=== PATIENT | male | born 1970 | race Asian ===

== ENCOUNTER 2017-05-14 07:59 | Emergency (ER) | payer OTHER ==
[~2017-05-14] VITALS: Ht 170.2 cm; Wt 77.0 kg
[~2017-05-14 07:59] MED LIST: ALBU8HFA IH; ASPI-825 PO; ATOR20TA86 PO; SERT50TA12 PO; WARF5 PO
[2017-05-14] MEDS ORDERED: ALBUTEROL SULFATE 5 MG/ML 20 ML NEB SOLN [BULK] NEB ONE (08:30)
[2017-05-14] MEDS ORDERED: IBUPROFEN 600 MG TABLET PO ONE (08:30)
[2017-05-14] MEDS ORDERED: IPRATROPIUM BROMIDE 0.5 MG/2.5 ML NEB SOLUTION NEB ONE (08:30)
[2017-05-14] MEDS ORDERED: PredniSONE 20 MG TABLET PO ONE (08:30)
[2017-05-14 09:36] VITALS: BP 130/78
== END 2017-05-14 09:47 | disposition home or self-care (01) ==
LOC: EMS 08:00
DX: J45.909 Unspecified asthma, uncomplicated (principal); I25.10 Atherosclerotic heart disease of native coronary artery without angina pectoris
CPT/HCPCS: 71010; 93005; 94644; 99285; J7512; J7611

== ENCOUNTER 2017-05-17 09:12 | Emergency (ER) | payer OTHER ==
[~2017-05-17] VITALS: Ht 170.2 cm; Wt 77.3 kg
[2017-05-17] MEDS ORDERED: IPRATROPIUM BROMIDE 0.5 MG/2.5 ML NEB SOLUTION NEB ONE ×3 (09:45→13:15)
[2017-05-17] MEDS ORDERED: ALBUTEROL SULFATE 5 MG/ML 20 ML NEB SOLN [BULK] NEB ONE ×2 (09:45→13:00)
[2017-05-17] MEDS ORDERED: DEXAMETHASONE 4 MG TABLET PO ONE (10:15)
[2017-05-17] MEDS ORDERED: ATOR40TA28 PO (10:37)
[2017-05-17] MEDS ORDERED: WARF7.5 PO (10:37)
[2017-05-17] MEDS ORDERED: MethylPREDNISolone SOD SUCC 125 MG/2 ML VIAL IVP ONE (10:45)
[2017-05-17 11:33] LABS: BASOPHILS % (AUTO) 0.3 % (0.0-2.0); EOSINOPHILS % (AUTO) 0.7 % (1.0-6.0); HEMATOCRIT 43.4 % (41-53); HEMOGLOBIN 14.8 g/dL (13.5-17.5); LYMPHOCYTES # (AUTO) 3.7 K/uL (1.0-4.8); LYMPHOCYTES % (AUTO) 34.6 % (22.0-44.0); MEAN CORPUSCULAR HEMOGLOBIN 29.7 pg (26.0-34.0); MEAN CORPUSCULAR VOLUME 87 fL (80-100); MONOCYTES # (AUTO) 0.8 K/uL (0.1-1.0); MONOCYTES % (AUTO) 7.7 % (2.0-9.0); NEUTROPHILS # (AUTO) 6.1 K/uL (1.8-7.7); NEUTROPHILS % (AUTO) 56.7 % (40.0-70.0); PLATELET COUNT (AUTO) 196 K/uL (150-450); RED BLOOD CELL COUNT(AUTO) 4.97 MIL/uL (4.50-5.90); RED CELL DISTRIBUTION WIDTH 13.7 % (11.5-14.5); WHITE BLOOD COUNT (AUTO) 10.7 K/uL (4.5-11.0)
[2017-05-17 11:37] LABS: ANION GAP 12 mmol/L (8-16); CALCIUM, TOTAL 9.5 mg/dL (8.8-10.5); CARBON DIOXIDE 28 mmol/L (22-29); CHLORIDE 103 mmol/L (98-107); GLOMERULAR FILTR. RATE CALC > 60 mL/min (>60); POTASSIUM 3.4 mmol/L (3.5-5.1); SODIUM SERUM 143 mmol/L (136-145); UREA NITROGEN, BLOOD 18 mg/dL (7-18)
[2017-05-17 11:44] LABS: ALANINE AMINOTRANSFERASE 45 U/L (12-78); ASPARTATE AMINOTRANSFERASE 31 U/L (15-37); BILIRUBIN,TOTAL 0.7 mg/dL (0.1-1.0); TOTAL PROTEIN, SERUM 8.8 g/dL (6.4-8.2)
[2017-05-17] MEDS ORDERED: ALBUTEROL SULFATE 2.5 MG/0.5 ML NEB SOLUTION NEB ONE (13:15)
[2017-05-17] MEDS ORDERED: ALBUTEROL SULFATE HFA 90 MCG/PUFF 8 GM INHALER IH ONE (13:30)
[2017-05-17 13:58] VITALS: BP 122/76
== END 2017-05-17 14:02 | disposition home or self-care (01) ==
LOC: EMS 09:12
DX: J45.909 Unspecified asthma, uncomplicated (principal); I25.10 Atherosclerotic heart disease of native coronary artery without angina pectoris
CPT/HCPCS: 36415; 71020; 80053; 85025; 94644; 94645; 96374; 99285; J2930; J7611; 94640; J3535; J8540

== ENCOUNTER 2017-05-18 08:05 | Emergency (ER) | payer OTHER ==
[~2017-05-18] VITALS: Ht 170.2 cm; Wt 77.3 kg
[~2017-05-18 08:05] MED LIST changes: -ATOR20TA86 PO; +ATOR40TA28 PO; -WARF5 PO; +WARF7.5 PO
[2017-05-18] MEDS ORDERED: IPRATROPIUM BROMIDE 0.5 MG/2.5 ML NEB SOLUTION NEB ONE ×4 (08:20→11:30)
[2017-05-18] MEDS ORDERED: ALBUTEROL SULFATE 5 MG/ML 20 ML NEB SOLN [BULK] NEB ONE ×4 (08:20→11:30)
[2017-05-18] MEDS ORDERED: 0.9% SODIUM CHLORIDE 5 ML NEB SOLUTION NEB ONE ×2 (08:21→09:29)
[2017-05-18] MEDS ORDERED: MethylPREDNISolone SOD SUCC 125 MG/2 ML VIAL IM ONE (08:45)
[2017-05-18] MEDS ORDERED: AZITHROMYCIN 250 MG TABLET PO ONE (09:30)
[2017-05-18] MEDS ORDERED: 0.9% SODIUM CHLORIDE 15 ML NEB SOLUTION NEB ONE (11:38)
[2017-05-18 12:12] VITALS: BP 113/59
== END 2017-05-18 12:58 | disposition home or self-care (01) ==
LOC: EMS 08:06
DX: J45.901 Unspecified asthma with (acute) exacerbation (principal); R06.03 Acute respiratory distress; J98.01 Acute bronchospasm; I25.10 Atherosclerotic heart disease of native coronary artery without angina pectoris
CPT/HCPCS: 94644; 94645; 96372; 99285; J2930; J7611

== ENCOUNTER 2017-05-20 15:28 | Emergency (ER) | payer OTHER ==
[~2017-05-20] VITALS: Ht 170.2 cm; Wt 77.3 kg
[2017-05-20] MEDS ORDERED: DOXY25SU3 PO (15:36)
[2017-05-20] MEDS ORDERED: ALBUTEROL SULFATE 5 MG/ML 20 ML NEB SOLN [BULK] NEB ONE ×2 (17:30→18:15)
[2017-05-20] MEDS ORDERED: IPRATROPIUM BROMIDE 0.5 MG/2.5 ML NEB SOLUTION NEB ONE ×2 (17:30→18:15)
[2017-05-20] MEDS ORDERED: ACETAMINOPHEN 500 MG TABLET PO ONE ×2 (18:15→18:45)
[2017-05-20] MEDS ORDERED: 0.9% SODIUM CHLORIDE 5 ML NEB SOLUTION NEB ONE (18:44)
[2017-05-20 18:57] VITALS: BP 130/84
== END 2017-05-20 20:50 | disposition home or self-care (01) ==
LOC: EMS 15:30
DX: J45.901 Unspecified asthma with (acute) exacerbation (principal); I25.10 Atherosclerotic heart disease of native coronary artery without angina pectoris; I51.9 Heart disease, unspecified; G43.909 Migraine, unspecified, not intractable, without status migrainosus; I25.2 Old myocardial infarction; Z79.82 Long term (current) use of aspirin
CPT/HCPCS: 94644; 94645; 99285; J7611

== ENCOUNTER 2017-05-30 17:25 | Inpatient (IN) | payer OTHER ==
[~2017-05-30] VITALS: Ht 165.1 cm; Wt 77.4 kg
[~2017-05-30 17:25] MED LIST changes: +DOXY25SU3 PO
[2017-05-30 17:50] LABS: BASOPHILS % (AUTO) 0.6 % (0.0-2.0); EOSINOPHILS % (AUTO) 1.8 % (1.0-6.0); HEMATOCRIT 37.3 % (41-53); HEMOGLOBIN 12.9 g/dL (13.5-17.5); LYMPHOCYTES # (AUTO) 2.8 K/uL (1.0-4.8); LYMPHOCYTES % (AUTO) 40.6 % (22.0-44.0); MEAN CORPUSCULAR HEMOGLOBIN 29.6 pg (26.0-34.0); MEAN CORPUSCULAR HGB CONC 34.5 G/dL (31.0-37.0); MEAN CORPUSCULAR VOLUME 86 fL (80-100); MONOCYTES # (AUTO) 0.5 K/uL (0.1-1.0); NEUTROPHILS # (AUTO) 3.3 K/uL (1.8-7.7); PLATELET COUNT (AUTO) 268 K/uL (150-450); RED BLOOD CELL COUNT(AUTO) 4.35 MIL/uL (4.50-5.90); RED CELL DISTRIBUTION WIDTH 13.6 % (11.5-14.5); WHITE BLOOD COUNT (AUTO) 6.8 K/uL (4.5-11.0)
[2017-05-30 18:03] LABS: ANION GAP 9 mmol/L (8-16); CALCIUM, TOTAL 8.6 mg/dL (8.8-10.5); CARBON DIOXIDE 29 mmol/L (22-29); CHLORIDE 103 mmol/L (98-107); CREATININE 0.98 mg/dL (0.60-1.30); GLOMERULAR FILTR. RATE CALC > 60 mL/min (>60); SODIUM SERUM 141 mmol/L (136-145); UREA NITROGEN, BLOOD 20 mg/dL (7-18)
[2017-05-30 18:15] LABS: INR 2.8 (0.9-1.1); PROTHROMBIN TIME 29.8 SEC (9.4-11.6)
[2017-05-30 18:17] LABS: B-TYPE NATRIURETIC PEPTIDE 45 pg/mL (0-100)
[2017-05-30 18:29] LABS: ALANINE AMINOTRANSFERASE 66 U/L (12-78); ALBUMIN 3.6 g/dL (3.4-5.0); ASPARTATE AMINOTRANSFERASE 27 U/L (15-37); BILIRUBIN,TOTAL 0.5 mg/dL (0.1-1.0); CREATINE KINASE MB 0.8 ng/mL (0-5); CREATINE KINASE, TOTAL 102 U/L (39-308); TOTAL PROTEIN, SERUM 7.4 g/dL (6.4-8.2)
[2017-05-30] MEDS ORDERED: DOXY100C40 PO (20:08)
[2017-05-30] MEDS ORDERED: DONNATAL/LIDOCAINE/MAALOX 55 ML BOTTLE PO ONE (20:15)
[2017-05-30] MEDS ORDERED: PANTOPRAZOLE SODIUM 80 MG in SODIUM CHLORIDE 0.9% 50 ML IV ONE (20:15)
[2017-05-30] MEDS ORDERED: PANTOPRAZOLE SODIUM 80 MG in SODIUM CHLORIDE 0.9% 100 ML IV SCH (22:00)
[2017-05-30] MEDS ORDERED: ALBUTEROL SULFATE 2.5 MG/0.5 ML NEB SOLUTION NEB PRN (22:15)
[2017-05-30] MEDS ORDERED: ACETAMINOPHEN 325 MG TABLET PO PRN (22:15)
[2017-05-30] MEDS ORDERED: WARFARIN SODIUM 5 MG TABLET PO SCH (22:15)
[2017-05-30] MEDS ORDERED: MAGNESIUM HYDROXIDE SUSPENSION 30 ML UDCUP PO PRN (22:15)
[2017-05-30] MEDS ORDERED: MORPHINE SULFATE 2 MG/ML SYRINGE IVP PRN (22:15)
[2017-05-30] MEDS ORDERED: OxyCODONE HCL/ACETAMINOPHEN 5-325 MG TABLET PO PRN (22:15)
[2017-05-31] VITALS (8 sets, daily range): BP systolic 104–121; BP diastolic 62–82
[2017-05-31] MEDS ORDERED: ZOLP10TA7 PO (00:35)
[2017-05-31] MEDS ORDERED: ZOLPIDEM TARTRATE 10 MG TABLET PO ONE (00:45)
[2017-05-31 06:11] LABS: INR 2.9 (0.9-1.1); PROTHROMBIN TIME 30.7 SEC (9.4-11.6)
[2017-05-31 06:14] LABS: BASOPHILS % (AUTO) 0.5 % (0.0-2.0); EOSINOPHILS % (AUTO) 2.4 % (1.0-6.0); HEMATOCRIT 36.9 % (41-53); HEMOGLOBIN 12.7 g/dL (13.5-17.5); LYMPHOCYTES # (AUTO) 2.4 K/uL (1.0-4.8); LYMPHOCYTES % (AUTO) 41.1 % (22.0-44.0); MEAN CORPUSCULAR HEMOGLOBIN 29.8 pg (26.0-34.0); MEAN CORPUSCULAR HGB CONC 34.5 G/dL (31.0-37.0); MEAN CORPUSCULAR VOLUME 87 fL (80-100); MONOCYTES # (AUTO) 0.5 K/uL (0.1-1.0); MONOCYTES % (AUTO) 7.8 % (2.0-9.0); NEUTROPHILS # (AUTO) 2.8 K/uL (1.8-7.7); NEUTROPHILS % (AUTO) 48.2 % (40.0-70.0); PLATELET COUNT (AUTO) 229 K/uL (150-450); RED BLOOD CELL COUNT(AUTO) 4.26 MIL/uL (4.50-5.90); RED CELL DISTRIBUTION WIDTH 13.5 % (11.5-14.5); WHITE BLOOD COUNT (AUTO) 5.8 K/uL (4.5-11.0)
[2017-05-31] MEDS: DOCUSATE SODIUM 100 MG CAPSULE PO SCH ×2 (08:49→20:45)
[2017-05-31] MEDS: ATORVASTATIN CALCIUM 40 MG TABLET PO SCH (08:49)
[2017-05-31] MEDS: PANTOPRAZOLE SODIUM 40 MG DR TABLET PO SCH ×2 (08:49→20:27)
[2017-05-31] MEDS: PANTOPRAZOLE SODIUM 80 MG in SODIUM CHLORIDE 0.9% 100 ML IV SCH (15:28)
[2017-05-31] MEDS ORDERED: FAMOTIDINE 20 MG TABLET PO ONE (17:00)
[2017-05-31] MEDS: LORazepam 1 MG TABLET PO SCH (17:14)
[2017-05-31] MEDS ORDERED: MECLIZINE HCL 25 MG TABLET PO PRN (20:45)
[2017-05-31] MEDS ORDERED: WARFARIN SODIUM 5 MG TABLET PO SCH (21:00)
[2017-05-31] MEDS ORDERED: ZOLPIDEM TARTRATE 10 MG TABLET PO PRN (21:00)
[2017-06-01 04:22] VITALS: BP 95/56
[2017-06-01 06:35] LABS: INR 2.1 (0.9-1.1); PROTHROMBIN TIME 22.1 SEC (9.4-11.6)
[2017-06-01 07:45] VITALS: BP 128/63
[2017-06-01] MEDS: ATORVASTATIN CALCIUM 40 MG TABLET PO SCH (08:56)
[2017-06-01] MEDS: DOCUSATE SODIUM 100 MG CAPSULE PO SCH (08:56)
[2017-06-01] MEDS: LORazepam 1 MG TABLET PO SCH (08:56)
[2017-06-01] MEDS: PANTOPRAZOLE SODIUM 80 MG in SODIUM CHLORIDE 0.9% 100 ML IV SCH ×3 (10:40)
[2017-06-01 10:56] VITALS: BP 104/63
[2017-06-01 15:19] VITALS: BP 113/69
[2017-06-01] MEDS ORDERED: PANT40TA25 PO (18:52)
== END 2017-06-01 19:05 | disposition home or self-care (01) | DRG 243 ==
LOC: EMS 17:28 → 5N 23:15
PROVIDERS: ADMIT Internal Medicine; ATTEND Internal Medicine
DX: K21.9 Gastro-esophageal reflux disease without esophagitis (principal); E78.5 Hyperlipidemia, unspecified; R10.13 Epigastric pain; R07.9 Chest pain, unspecified; I25.2 Old myocardial infarction; F41.9 Anxiety disorder, unspecified; I25.10 Atherosclerotic heart disease of native coronary artery without angina pectoris; J45.909 Unspecified asthma, uncomplicated; G43.909 Migraine, unspecified, not intractable, without status migrainosus; Z82.49 Family history of ischemic heart disease and other diseases of the circulatory system; Z79.01 Long term (current) use of anticoagulants; Z79.82 Long term (current) use of aspirin; Z79.899 Other long term (current) drug therapy; Z79.51 Long term (current) use of inhaled steroids
CPT/HCPCS: 74022; 82271; 93005; 96365; 96366; 99285; C9113; J7050

== ENCOUNTER 2017-06-06 06:59 | Emergency (ER) | payer OTHER ==
[~2017-06-06] VITALS: Ht 170.2 cm; Wt 77.3 kg
[~2017-06-06 06:59] MED LIST changes: -DOXY25SU3 PO; +PANT40TA25 PO; +ZOLP10TA7 PO
[2017-06-06] MEDS ORDERED: DEXAMETHASONE SOD PHOS 4 MG/ML 5 ML VIAL IM ONE (08:00)
[2017-06-06] MEDS ORDERED: ALBUTEROL SULFATE 2.5 MG/0.5 ML NEB SOLUTION NEB ONE ×2 (08:00→08:45)
[2017-06-06 09:00] VITALS: BP 134/68
== END 2017-06-06 09:09 | disposition home or self-care (01) ==
LOC: EMS 07:00
DX: J45.909 Unspecified asthma, uncomplicated (principal); I25.10 Atherosclerotic heart disease of native coronary artery without angina pectoris; I51.9 Heart disease, unspecified; G43.909 Migraine, unspecified, not intractable, without status migrainosus; I25.2 Old myocardial infarction
CPT/HCPCS: 94640; 96372; 99284; J1100; J7613

== ENCOUNTER 2017-06-08 10:20 | Emergency (ER) | payer OTHER ==
[~2017-06-08] VITALS: Ht 170.2 cm; Wt 77.3 kg
[2017-06-08 10:48] VITALS: BP 149/77
[2017-06-08] MEDS ORDERED: IPRATROPIUM BROMIDE 0.5 MG/2.5 ML NEB SOLUTION NEB ONE (11:00)
[2017-06-08] MEDS ORDERED: PredniSONE 20 MG TABLET PO ONE (11:00)
[2017-06-08] MEDS ORDERED: ALBUTEROL SULFATE 2.5 MG/0.5 ML NEB SOLUTION NEB ONE (11:00)
[2017-06-08] MEDS ORDERED: PRED20 PO (20:52)
== END 2017-06-08 11:54 | disposition home or self-care (01) ==
LOC: EMS 10:21
DX: J45.909 Unspecified asthma, uncomplicated (principal); R03.0 Elevated blood-pressure reading, without diagnosis of hypertension; I25.10 Atherosclerotic heart disease of native coronary artery without angina pectoris; I25.2 Old myocardial infarction
CPT/HCPCS: 94644; 99285; J7512; J7613; 94640

== ENCOUNTER 2017-06-08 20:39 | Emergency (ER) | payer OTHER ==
[~2017-06-08] VITALS: Ht 170.2 cm; Wt 77.0 kg
[2017-06-08] MEDS ORDERED: PRED20 PO (20:52)
[2017-06-08] MEDS ORDERED: MethylPREDNISolone SOD SUCC 125 MG/2 ML VIAL IVP ONE (21:30)
[2017-06-08] MEDS ORDERED: ALBUTEROL SULFATE 5 MG/ML 20 ML NEB SOLN [BULK] NEB ONE (21:30)
[2017-06-08] MEDS ORDERED: IPRATROPIUM BROMIDE 0.5 MG/2.5 ML NEB SOLUTION NEB ONE (21:30)
[2017-06-08] MEDS ORDERED: 0.9% SODIUM CHLORIDE 15 ML NEB SOLUTION NEB ONE (21:32)
[2017-06-08 21:35] LABS: BASOPHILS % (AUTO) 0.2 % (0.0-2.0); EOSINOPHILS % (AUTO) 0 % (1.0-6.0); HEMATOCRIT 36.5 % (41-53); HEMOGLOBIN 12.6 g/dL (13.5-17.5); LYMPHOCYTES % (AUTO) 20.5 % (22.0-44.0); MEAN CORPUSCULAR HEMOGLOBIN 29.6 pg (26.0-34.0); MEAN CORPUSCULAR HGB CONC 34.4 G/dL (31.0-37.0); MEAN CORPUSCULAR VOLUME 86 fL (80-100); MONOCYTES # (AUTO) 0.1 K/uL (0.1-1.0); MONOCYTES % (AUTO) 3.2 % (2.0-9.0); NEUTROPHILS # (AUTO) 3.5 K/uL (1.8-7.7); NEUTROPHILS % (AUTO) 76.1 % (40.0-70.0); PLATELET COUNT (AUTO) 177 K/uL (150-450); RED BLOOD CELL COUNT(AUTO) 4.25 MIL/uL (4.50-5.90); RED CELL DISTRIBUTION WIDTH 13.9 % (11.5-14.5); WHITE BLOOD COUNT (AUTO) 4.7 K/uL (4.5-11.0)
[2017-06-08 21:54] LABS: ANION GAP 12 mmol/L (8-16); CALCIUM, TOTAL 8.7 mg/dL (8.8-10.5); CARBON DIOXIDE 24 mmol/L (22-29); CHLORIDE 100 mmol/L (98-107); CREATININE 1.17 mg/dL (0.60-1.30); GLOMERULAR FILTR. RATE CALC > 60 mL/min (>60); SODIUM SERUM 136 mmol/L (136-145); UREA NITROGEN, BLOOD 15 mg/dL (7-18)
[2017-06-08 21:59] LABS: ALANINE AMINOTRANSFERASE 49 U/L (12-78); ALBUMIN 3.5 g/dL (3.4-5.0); ASPARTATE AMINOTRANSFERASE 32 U/L (15-37); BILIRUBIN,TOTAL 0.3 mg/dL (0.1-1.0); TOTAL PROTEIN, SERUM 7.8 g/dL (6.4-8.2)
[2017-06-08 22:30] VITALS: BP 122/76
== END 2017-06-08 23:15 | disposition home or self-care (01) ==
LOC: EMS 20:40
DX: J45.901 Unspecified asthma with (acute) exacerbation (principal); J06.9 Acute upper respiratory infection, unspecified; R73.9 Hyperglycemia, unspecified; I25.10 Atherosclerotic heart disease of native coronary artery without angina pectoris; I25.2 Old myocardial infarction
CPT/HCPCS: 36415; 71010; 80053; 84484; 85025; 94640; 96374; 99285; J2930; J7611

== ENCOUNTER 2017-06-10 16:50 | Emergency (ER) | payer OTHER ==
[~2017-06-10] VITALS: Ht 170.2 cm; Wt 77.3 kg
[~2017-06-10 16:50] MED LIST changes: +PRED20 PO
[2017-06-10] MEDS ORDERED: 0.9% SODIUM CHLORIDE 5 ML NEB SOLUTION NEB ONE ×2 (19:39→21:40)
[2017-06-10] MEDS ORDERED: IPRATROPIUM BROMIDE 0.5 MG/2.5 ML NEB SOLUTION NEB ONE ×2 (19:45→21:15)
[2017-06-10] MEDS ORDERED: MethylPREDNISolone SOD SUCC 125 MG/2 ML VIAL IVP ONE (19:45)
[2017-06-10] MEDS ORDERED: ALBUTEROL SULFATE 5 MG/ML 20 ML NEB SOLN [BULK] NEB ONE ×2 (19:45→21:15)
[2017-06-10 20:04] LABS: BASOPHILS % (AUTO) 0.5 % (0.0-2.0); EOSINOPHILS % (AUTO) 0 % (1.0-6.0); HEMATOCRIT 37.4 % (41-53); HEMOGLOBIN 12.7 g/dL (13.5-17.5); LYMPHOCYTES # (AUTO) 1.7 K/uL (1.0-4.8); MEAN CORPUSCULAR HEMOGLOBIN 29.5 pg (26.0-34.0); MEAN CORPUSCULAR VOLUME 87 fL (80-100); MONOCYTES # (AUTO) 0.5 K/uL (0.1-1.0); MONOCYTES % (AUTO) 6.5 % (2.0-9.0); NEUTROPHILS # (AUTO) 5.5 K/uL (1.8-7.7); PLATELET COUNT (AUTO) 229 K/uL (150-450); RED BLOOD CELL COUNT(AUTO) 4.31 MIL/uL (4.50-5.90); RED CELL DISTRIBUTION WIDTH 13.9 % (11.5-14.5); WHITE BLOOD COUNT (AUTO) 7.7 K/uL (4.5-11.0)
[2017-06-10 20:13] LABS: ANION GAP 6 mmol/L (8-16); CALCIUM, TOTAL 8.6 mg/dL (8.8-10.5); CARBON DIOXIDE 30 mmol/L (22-29); CHLORIDE 103 mmol/L (98-107); CREATININE 1.01 mg/dL (0.60-1.30); GLOMERULAR FILTR. RATE CALC > 60 mL/min (>60); POTASSIUM 4.1 mmol/L (3.5-5.1); SODIUM SERUM 139 mmol/L (136-145); UREA NITROGEN, BLOOD 18 mg/dL (7-18)
[2017-06-10 20:16] LABS: PROTHROMBIN TIME 45.6 SEC (9.4-11.6)
[2017-06-10 20:19] LABS: ALANINE AMINOTRANSFERASE 49 U/L (12-78); ALBUMIN 3.5 g/dL (3.4-5.0); ASPARTATE AMINOTRANSFERASE 24 U/L (15-37); BILIRUBIN,TOTAL 0.3 mg/dL (0.1-1.0); TOTAL PROTEIN, SERUM 7.7 g/dL (6.4-8.2)
[2017-06-10 20:27] LABS: INR 4.3 (0.9-1.1)
[2017-06-10 20:36] LABS: B-TYPE NATRIURETIC PEPTIDE 53 pg/mL (0-100)
[2017-06-10 23:07] VITALS: BP 132/75
== END 2017-06-10 22:55 | disposition left against medical advice (07) ==
LOC: EMS 16:55
DX: J45.901 Unspecified asthma with (acute) exacerbation (principal); I25.10 Atherosclerotic heart disease of native coronary artery without angina pectoris; G43.909 Migraine, unspecified, not intractable, without status migrainosus; I25.2 Old myocardial infarction; Z79.899 Other long term (current) drug therapy
CPT/HCPCS: 36415; 71010; 80053; 83880; 85025; 85610; 85730; 94644; 94645; 96374; 99285; J2930; J7611

== ENCOUNTER 2017-06-13 15:13 | Emergency (ER) | payer OTHER ==
[~2017-06-13] VITALS: Ht 170.2 cm; Wt 77.3 kg
[~2017-06-13 15:13] MED LIST changes: -PANT40TA25 PO
[2017-06-13] MEDS ORDERED: IPRATROPIUM BROMIDE 0.5 MG/2.5 ML NEB SOLUTION NEB ONE (15:45)
[2017-06-13] MEDS ORDERED: DEXAMETHASONE SOD PHOS 4 MG/ML 5 ML VIAL IM ONE (15:45)
[2017-06-13] MEDS ORDERED: ALBUTEROL SULFATE 5 MG/ML 20 ML NEB SOLN [BULK] NEB ONE (15:45)
[2017-06-13] MEDS ORDERED: 0.9% SODIUM CHLORIDE 5 ML NEB SOLUTION NEB ONE (15:46)
[2017-06-13 16:40] VITALS: BP 105/65
== END 2017-06-13 16:45 | disposition home or self-care (01) ==
LOC: EMS 15:14
DX: J45.909 Unspecified asthma, uncomplicated (principal); F41.9 Anxiety disorder, unspecified; I25.10 Atherosclerotic heart disease of native coronary artery without angina pectoris; G43.909 Migraine, unspecified, not intractable, without status migrainosus; I25.2 Old myocardial infarction; Z79.01 Long term (current) use of anticoagulants; Z79.82 Long term (current) use of aspirin
CPT/HCPCS: 94644; 96372; 99285; J1100; J7611

== ENCOUNTER 2019-01-26 10:38 | Emergency (ER) | payer OTHER ==
[~2019-01-26] VITALS: Ht 167.6 cm; Wt 75.0 kg
[2019-01-26] MEDS ORDERED: IPRATROPIUM BROMIDE 0.5 MG/2.5 ML NEB SOLUTION NEB ONE (11:15)
[2019-01-26] MEDS ORDERED: ALBUTEROL SULFATE 5 MG/ML 20 ML NEB SOLN [BULK] NEB ONE (11:15)
[2019-01-26] MEDS ORDERED: ALBUTEROL SULFATE HFA 90 MCG/PUFF 8 GM INHALER IH ONE (11:30)
[2019-01-26 11:44] LABS: BASOPHILS % (AUTO) 0.9 % (0.0-2.0); EOSINOPHILS % (AUTO) 6.3 % (1.0-6.0); HEMOGLOBIN 14.5 g/dL (13.5-17.5); LYMPHOCYTES # (AUTO) 2.4 K/uL (1.0-4.8); LYMPHOCYTES % (AUTO) 45.3 % (22.0-44.0); MEAN CORPUSCULAR HEMOGLOBIN 28.8 pg (26.0-34.0); MEAN CORPUSCULAR HGB CONC 32.9 G/dL (31.0-37.0); MEAN CORPUSCULAR VOLUME 88 fL (80-100); MONOCYTES # (AUTO) 0.5 K/uL (0.1-1.0); MONOCYTES % (AUTO) 8.7 % (2.0-9.0); NEUTROPHILS # (AUTO) 2.1 K/uL (1.8-7.7); NEUTROPHILS % (AUTO) 38.8 % (40.0-70.0); PLATELET COUNT (AUTO) 242 K/uL (150-450); RED BLOOD CELL COUNT(AUTO) 5.03 MIL/uL (4.50-5.90); RED CELL DISTRIBUTION WIDTH 13.9 % (11.5-14.5)
[2019-01-26] MEDS ORDERED: 0.9% SODIUM CHLORIDE 15 ML NEB SOLUTION NEB ONE (11:46)
[2019-01-26 11:52] LABS: ANION GAP 10 mmol/L (8-16); CALCIUM, TOTAL 9.4 mg/dL (8.8-10.5); CARBON DIOXIDE 26 mmol/L (22-29); CHLORIDE 103 mmol/L (98-107); CREATININE 0.96 mg/dL (0.60-1.30); GLOMERULAR FILTR. RATE CALC > 60 mL/min (>60); GLUCOSE,RANDOM 92 mg/dL (70-110); SODIUM SERUM 139 mmol/L (136-145); UREA NITROGEN, BLOOD 15 mg/dL (7-18)
[2019-01-26 11:58] LABS: ALANINE AMINOTRANSFERASE 51 U/L (12-78); ALBUMIN 3.9 g/dL (3.4-5.0); ALKALINE PHOSPHATASE 82 U/L (46-116); ASPARTATE AMINOTRANSFERASE 34 U/L (15-37); BILIRUBIN,TOTAL 0.9 mg/dL (0.1-1.0); TOTAL PROTEIN, SERUM 8.4 g/dL (6.4-8.2)
[2019-01-26 12:06] LABS: INR 2.5 (0.9-1.1); PROTHROMBIN TIME 25.1 SEC (9.4-11.6)
[2019-01-26 12:14] LABS: B-TYPE NATRIURETIC PEPTIDE 17 pg/mL (0-100)
[2019-01-26 12:19] LABS: D-DIMER 0.17 mg/L FEU (0.00-0.50)
[2019-01-26 13:18] VITALS: BP 132/72
== END 2019-01-26 13:31 | disposition home or self-care (01) ==
LOC: EMS 10:39
DX: J45.901 Unspecified asthma with (acute) exacerbation (principal); I25.10 Atherosclerotic heart disease of native coronary artery without angina pectoris; G43.909 Migraine, unspecified, not intractable, without status migrainosus; F41.9 Anxiety disorder, unspecified; I25.2 Old myocardial infarction; Z79.82 Long term (current) use of aspirin
CPT/HCPCS: 85379; 87040; 93005; 94640; 94644; J3535

== ENCOUNTER 2019-02-26 14:33 | Emergency (ER) | payer OTHER ==
[~2019-02-26] VITALS: Ht 167.6 cm; Wt 75.0 kg
[~2019-02-26 14:33] MED LIST changes: -PRED20 PO
[2019-02-26] MEDS ORDERED: IPRATROPIUM BROMIDE 0.5 MG/2.5 ML NEB SOLUTION NEB ONE (15:15)
[2019-02-26] MEDS ORDERED: ALBUTEROL SULFATE 5 MG/ML 20 ML NEB SOLN [BULK] NEB ONE (15:15)
[2019-02-26] MEDS ORDERED: PredniSONE 20 MG TABLET PO ONE (15:15)
[2019-02-26 17:49] VITALS: BP 112/76
== END 2019-02-26 18:12 | disposition home or self-care (01) ==
LOC: EMS 14:38
DX: J45.901 Unspecified asthma with (acute) exacerbation (principal); F41.9 Anxiety disorder, unspecified; I25.10 Atherosclerotic heart disease of native coronary artery without angina pectoris; I51.9 Heart disease, unspecified; G43.909 Migraine, unspecified, not intractable, without status migrainosus; I25.2 Old myocardial infarction; Z79.82 Long term (current) use of aspirin
CPT/HCPCS: 94644; 99285; J7512

== ENCOUNTER 2019-03-18 20:01 | Emergency (ER) | payer OTHER ==
[~2019-03-18] VITALS: Ht 170.2 cm; Wt 77.3 kg
[~2019-03-18 20:01] MED LIST changes: -ASPI-825 PO; +RIVA20TA PO; -WARF7.5 PO
[2019-03-18 20:28] LABS: BASOPHILS % (AUTO) 0.2 % (0.0-2.0); EOSINOPHILS % (AUTO) 0 % (1.0-6.0); HEMATOCRIT 41.5 % (41-53); HEMOGLOBIN 13.6 g/dL (13.5-17.5); LYMPHOCYTES # (AUTO) 1.2 K/uL (1.0-4.8); LYMPHOCYTES % (AUTO) 16.2 % (22.0-44.0); MEAN CORPUSCULAR HGB CONC 32.8 G/dL (31.0-37.0); MEAN CORPUSCULAR VOLUME 89 fL (80-100); MONOCYTES # (AUTO) 0.5 K/uL (0.1-1.0); MONOCYTES % (AUTO) 6.7 % (2.0-9.0); NEUTROPHILS # (AUTO) 5.5 K/uL (1.8-7.7); NEUTROPHILS % (AUTO) 76.9 % (40.0-70.0); PLATELET COUNT (AUTO) 238 K/uL (150-450); RED BLOOD CELL COUNT(AUTO) 4.69 MIL/uL (4.50-5.90); RED CELL DISTRIBUTION WIDTH 14.2 % (11.5-14.5)
[2019-03-18 20:41] LABS: CALCIUM, TOTAL 8.9 mg/dL (8.8-10.5); CREATININE 1.44 mg/dL (0.60-1.30)
[2019-03-18 20:46] LABS: ALBUMIN 4.1 g/dL (3.4-5.0); BILIRUBIN,TOTAL 0.6 mg/dL (0.1-1.0); TOTAL PROTEIN, SERUM 7.7 g/dL (6.4-8.2)
[2019-03-18] MEDS ORDERED: ALBUTEROL SULFATE 5 MG/ML 20 ML NEB SOLN [BULK] NEB ONE (21:45)
[2019-03-18] MEDS ORDERED: IPRATROPIUM BROMIDE 0.5 MG/2.5 ML NEB SOLUTION NEB ONE (21:45)
[2019-03-18] MEDS ORDERED: MethylPREDNISolone SOD SUCC 125 MG/2 ML VIAL IVP ONE (21:45)
[2019-03-18 23:40] VITALS: BP 118/73
== END 2019-03-19 00:23 | disposition home or self-care (01) ==
LOC: EMS 20:02
DX: J45.909 Unspecified asthma, uncomplicated (principal); F41.9 Anxiety disorder, unspecified; I25.10 Atherosclerotic heart disease of native coronary artery without angina pectoris; G43.909 Migraine, unspecified, not intractable, without status migrainosus; I25.2 Old myocardial infarction; I51.9 Heart disease, unspecified; Z86.73 Personal history of transient ischemic attack (TIA), and cerebral infarction without residual deficits
CPT/HCPCS: 36415; 71045; 80053; 84484; 85025; 93005; 94640; 96374; 99284; J2930

== ENCOUNTER → 2022-09-03 | Emergency (ER) | payer OTHER ==
[~2022-09-03] VITALS: Ht 170.2 cm; Wt 75.0 kg
[~2022-09-03] MED LIST changes: +ALBUTEROL SULFATE 2.5 MG/0.5 ML NEB SOLUTION NEB ONE; +ALBUTEROL SULFATE HFA 90 MCG/PUFF 8 GM INHALER IH ONE; +IPRATROPIUM BROMIDE 0.5 MG/2.5 ML NEB SOLUTION NEB ONE; +SERT-158 PO; -SERT50TA12 PO; -ZOLP10TA7 PO; +ZOLP10TA8 PO
[2022-09-03 13:28] LABS: BASOPHILS % (AUTO) 0.5 % (0.0-2.0); EOSINOPHILS % (AUTO) 0.7 % (1.0-6.0); HEMATOCRIT 40.9 % (41-53); HEMOGLOBIN 13.8 g/dL (13.5-17.5); LYMPHOCYTES # (AUTO) 0.9 K/uL (1.0-4.8); LYMPHOCYTES % (AUTO) 11.2 % (22.0-44.0); MEAN CORPUSCULAR HEMOGLOBIN 29.6 pg (26.0-34.0); MEAN CORPUSCULAR HGB CONC 33.7 G/dL (31.0-37.0); MEAN CORPUSCULAR VOLUME 88 fL (80-100); MONOCYTES # (AUTO) 0.1 K/uL (0.1-1.0); MONOCYTES % (AUTO) 1.8 % (2.0-9.0); NEUTROPHILS # (AUTO) 6.6 K/uL (1.8-7.7); PLATELET COUNT (AUTO) 249 K/uL (150-450); RED BLOOD CELL COUNT(AUTO) 4.66 MIL/uL (4.50-5.90); RED CELL DISTRIBUTION WIDTH 13.5 % (11.5-14.5)
[2022-09-03 13:34] LABS: NEUTROPHILS % (AUTO) 85.8 % (40.0-70.0)
[2022-09-03 13:43] LABS: ANION GAP 7 mmol/L (8-16); CALCIUM, TOTAL 9.1 mg/dL (8.8-10.5); CARBON DIOXIDE 29 mmol/L (22-29); CHLORIDE 104 mmol/L (98-107); CREATININE 0.89 mg/dL (0.60-1.30); GLOMERULAR FILTR. RATE CALC > 60 mL/min (>60); GLUCOSE,RANDOM 149 mg/dL (70-110); POTASSIUM 3.9 mmol/L (3.5-5.1); SODIUM SERUM 140 mmol/L (136-145); UREA NITROGEN, BLOOD 12 mg/dL (7-18)
[2022-09-03 13:45] LABS: B-TYPE NATRIURETIC PEPTIDE 13 pg/mL (0-100)
[2022-09-03 13:51] LABS: ALANINE AMINOTRANSFERASE 56 U/L (12-78); ALBUMIN 4.1 g/dL (3.4-5.0); ALKALINE PHOSPHATASE 61 U/L (46-116); ASPARTATE AMINOTRANSFERASE 35 U/L (15-37); BILIRUBIN,TOTAL 0.8 mg/dL (0.1-1.0); CREATINE KINASE, TOTAL ONLY 102 U/L (39-308); TOTAL PROTEIN, SERUM 7.6 g/dL (6.4-8.2)
[2022-09-03 13:54] LABS: PROTHROMBIN TIME 10.3 SEC (9.4-11.6)
[2022-09-03 15:53] VITALS: BP 124/64
== END | disposition still patient (30) ==
LOC: EMS 12:30
DX: R07.89 Other chest pain (principal); J45.909 Unspecified asthma, uncomplicated; F41.9 Anxiety disorder, unspecified; I25.10 Atherosclerotic heart disease of native coronary artery without angina pectoris; G43.909 Migraine, unspecified, not intractable, without status migrainosus
CPT/HCPCS: 99285; 71045; 80053; 82550; 83880; 84484; 85025; 85610; 85730; 36415; 94640; 93005; J3535; J7613

== ENCOUNTER 2024-07-01 10:26 | Emergency (ER) | payer OTHER ==
[~2024-07-01] VITALS: Ht 170.2 cm; Wt 72.7 kg
[~2024-07-01 10:26] MED LIST changes: +ALBU18HF12 IH; -ALBU8HFA IH; -ALBUTEROL SULFATE 2.5 MG/0.5 ML NEB SOLUTION NEB ONE; -ALBUTEROL SULFATE HFA 90 MCG/PUFF 8 GM INHALER IH ONE; -IPRATROPIUM BROMIDE 0.5 MG/2.5 ML NEB SOLUTION NEB ONE; +ZOLP-162 PO; -ZOLP10TA8 PO
[2024-07-01 10:38] VITALS: TEMP 98.5
[2024-07-01 11:02] LABS: BASOPHILS % (AUTO) 0.6 % (0.0-2.0); EOSINOPHILS % (AUTO) 0.9 % (1.0-6.0); HEMOGLOBIN 15.1 g/dL (13.5-17.5); LYMPHOCYTES # (AUTO) 1.3 K/uL (1.0-4.8); LYMPHOCYTES % (AUTO) 18.1 % (22.0-44.0); MEAN CORPUSCULAR HEMOGLOBIN 30.2 pg (26.0-34.0); MEAN CORPUSCULAR HGB CONC 33.6 G/dL (31.0-37.0); MEAN CORPUSCULAR VOLUME 90 fL (80-100); MONOCYTES # (AUTO) 0.3 K/uL (0.1-1.0); MONOCYTES % (AUTO) 4.4 % (2.0-9.0); NEUTROPHILS # (AUTO) 5.5 K/uL (1.8-7.7); PLATELET COUNT (AUTO) 243 K/uL (150-450); RED BLOOD CELL COUNT(AUTO) 5.01 MIL/uL (4.50-5.90); RED CELL DISTRIBUTION WIDTH 13.2 % (11.5-14.5); WHITE BLOOD COUNT (AUTO) 7.3 K/uL (4.5-11.0)
[2024-07-01 11:07] LABS: ANION GAP 8 mmol/L (8-16); CALCIUM, TOTAL 8.8 mg/dL (8.8-10.5); CARBON DIOXIDE 32 mmol/L (22-29); CHLORIDE 99 mmol/L (98-107); CREATININE 1.11 mg/dL (0.60-1.30); GLOMERULAR FILTR. RATE CALC > 60 mL/min (>60); GLUCOSE,RANDOM 148 mg/dL (70-110); POTASSIUM 3.5 mmol/L (3.5-5.1); SODIUM SERUM 138 mmol/L (136-145); UREA NITROGEN, BLOOD 15 mg/dL (7-18)
[2024-07-01 11:15] LABS: TROPONIN I-HIGH SENSITIVITY 4 ng/L (<76)
[2024-07-01 11:18] LABS: B-TYPE NATRIURETIC PEPTIDE 7 pg/mL (0-100)
[2024-07-01] MEDS ORDERED: LORA-1000 PO ×2 (11:29→19:34)
[2024-07-01] MEDS ORDERED: MOME13HF12 IH (11:29)
[2024-07-01] MEDS: ACETAMINOPHEN 325 MG TABLET PO ONE (11:29)
[2024-07-01] MEDS ORDERED: ACET-66 PO (11:29)
[2024-07-01] MEDS ORDERED: MONT-40 PO (11:29)
[2024-07-01] MEDS ORDERED: ALBU0.8311 NEB (11:29)
[2024-07-01] MEDS ORDERED: EMPA25TA3 PO (11:29)
[2024-07-01] MEDS ORDERED: ATOR-2 PO (11:29)
[2024-07-01] MEDS ORDERED: METO-408 PO (11:29)
[2024-07-01] MEDS ORDERED: METF-446 PO (11:29)
[2024-07-01] MEDS ORDERED: SEMA1PEN3 SQ (11:29)
[2024-07-01] MEDS ORDERED: PRED-729 PO (11:29)
[2024-07-01] MEDS ORDERED: SERT-440 PO (11:29)
[2024-07-01] MEDS ORDERED: OMEP20CA12 PO (11:29)
[2024-07-01 11:33] LABS: CREATINE KINASE, TOTAL ONLY 99 U/L (39-308)
[2024-07-01 12:56] VITALS: BP 141/60; PULSE 87; RESP 18; O2SAT 100
[2024-07-01] MEDS ORDERED: ZOLP-162 PO (19:34)
== END 2024-07-01 13:31 | disposition home or self-care (01) ==
LOC: EMS 10:26
DX: R07.89 Other chest pain (principal); F41.9 Anxiety disorder, unspecified; J45.909 Unspecified asthma, uncomplicated; G43.909 Migraine, unspecified, not intractable, without status migrainosus; Z79.51 Long term (current) use of inhaled steroids; Z79.52 Long term (current) use of systemic steroids; Z79.899 Other long term (current) drug therapy
CPT/HCPCS: 70450; 71045; 80048; 82550; 83880; 84484; 85025; 85610; 85730; 93005; 99285; 36415-L1; 36415-TC

== ENCOUNTER 2024-07-01 17:03 | Emergency (ER) | payer OTHER ==
[~2024-07-01] VITALS: Ht 170.2 cm; Wt 73.0 kg
[~2024-07-01 17:03] MED LIST changes: +ACET-66 PO; +ALBU0.8311 NEB; +ATOR-2 PO; +EMPA25TA3 PO; +LORA-1000 PO; +METF-446 PO; +METO-408 PO; +MOME13HF12 IH; +MONT-40 PO; +OMEP20CA12 PO; +PRED-729 PO; +SEMA1PEN3 SQ; +SERT-440 PO
[2024-07-01] MEDS ORDERED: ZOLP-162 PO (19:34)
[2024-07-01] MEDS ORDERED: LORA-1000 PO (19:34)
[2024-07-01 19:42] VITALS: BP 132/72; PULSE 79; RESP 16; TEMP 98.3; O2SAT 98
== END 2024-07-01 20:20 | disposition home or self-care (01) ==
LOC: EMS 17:03
DX: F41.9 Anxiety disorder, unspecified (principal); G47.00 Insomnia, unspecified; R07.9 Chest pain, unspecified; J45.909 Unspecified asthma, uncomplicated; Z79.51 Long term (current) use of inhaled steroids; Z79.52 Long term (current) use of systemic steroids; Z79.899 Other long term (current) drug therapy
CPT/HCPCS: 99281; Z7502

== ENCOUNTER 2024-07-13 20:04 | Emergency (ER) | payer OTHER ==
[~2024-07-13] VITALS: Ht 170.2 cm; Wt 67.3 kg
[~2024-07-13 20:04] MED LIST changes: -ATOR40TA28 PO; -SERT-158 PO
[2024-07-13 21:01] LABS: GLUCOMETER DEV NAME(LOC) ERT.6; GLUCOSE,POINT OF CARE 124 MG/DL (70-110)
[2024-07-13 21:19] LABS: BASOPHILS % (AUTO) 0.5 % (0.0-2.0); EOSINOPHILS % (AUTO) 0.6 % (1.0-6.0); HEMATOCRIT 41.9 % (41-53); HEMOGLOBIN 14.2 g/dL (13.5-17.5); LYMPHOCYTES # (AUTO) 1.8 K/uL (1.0-4.8); LYMPHOCYTES % (AUTO) 29.4 % (22.0-44.0); MEAN CORPUSCULAR HEMOGLOBIN 30.2 pg (26.0-34.0); MEAN CORPUSCULAR HGB CONC 33.8 G/dL (31.0-37.0); MEAN CORPUSCULAR VOLUME 89 fL (80-100); MONOCYTES # (AUTO) 0.4 K/uL (0.1-1.0); MONOCYTES % (AUTO) 6.4 % (2.0-9.0); NEUTROPHILS # (AUTO) 3.9 K/uL (1.8-7.7); NEUTROPHILS % (AUTO) 63.1 % (40.0-70.0); PLATELET COUNT (AUTO) 244 K/uL (150-450); RED BLOOD CELL COUNT(AUTO) 4.69 MIL/uL (4.50-5.90); RED CELL DISTRIBUTION WIDTH 13.3 % (11.5-14.5); WHITE BLOOD COUNT (AUTO) 6.2 K/uL (4.5-11.0)
[2024-07-13 21:34] LABS: ANION GAP 4 mmol/L (8-16); CALCIUM, TOTAL 8.8 mg/dL (8.8-10.5); CARBON DIOXIDE 34 mmol/L (22-29); CHLORIDE 102 mmol/L (98-107); CREATININE 0.93 mg/dL (0.60-1.30); GLOMERULAR FILTR. RATE CALC > 60 mL/min (>60); GLUCOSE,RANDOM 118 mg/dL (70-110); POTASSIUM 4.4 mmol/L (3.5-5.1); SODIUM SERUM 140 mmol/L (136-145); UREA NITROGEN, BLOOD 16 mg/dL (7-18)
[2024-07-13 21:38] LABS: TROPONIN I-HIGH SENSITIVITY 4 ng/L (<76)
[2024-07-13 21:39] LABS: ALANINE AMINOTRANSFERASE 64 U/L (12-78); ALBUMIN 3.7 g/dL (3.4-5.0); ALKALINE PHOSPHATASE 70 U/L (46-116); ASPARTATE AMINOTRANSFERASE 28 U/L (15-37); BILIRUBIN,TOTAL 0.5 mg/dL (0.1-1.0); LIPASE 85 U/L (16-77); TOTAL PROTEIN, SERUM 7.2 g/dL (6.4-8.2)
[2024-07-14] MEDS: ONDANSETRON HCL 4 MG/2 ML VIAL IVP ONE (02:00)
[2024-07-14] MEDS: PB/HYOSCY/ATR/SCOP/LIDO/MAALOX 55 ML BOTTLE PO ONE (02:01)
[2024-07-14] MEDS: KETOROLAC TROMETHAMINE 30 MG/ML VIAL IVP ONE (02:01)
[2024-07-14] MEDS ORDERED: ONDA-104 PO (02:30)
[2024-07-14] MEDS ORDERED: MAG30ORA11 PO (02:30)
[2024-07-14] MEDS ORDERED: OMEP20 PO (02:30)
[2024-07-14 03:30] VITALS: BP 127/72; PULSE 56; RESP 16; TEMP 97.3; O2SAT 100
== END 2024-07-14 04:15 | disposition home or self-care (01) ==
LOC: EMS 20:04
DX: R10.13 Epigastric pain (principal); R07.89 Other chest pain; G47.00 Insomnia, unspecified; F41.9 Anxiety disorder, unspecified; J45.909 Unspecified asthma, uncomplicated; K21.9 Gastro-esophageal reflux disease without esophagitis; Z79.51 Long term (current) use of inhaled steroids; Z79.52 Long term (current) use of systemic steroids; Z79.899 Other long term (current) drug therapy
CPT/HCPCS: 99284; 80048; 80076; 82962; 83690; 84484; 85025; 36415; 93005; 96374; 96375; J1885; J2405

== ENCOUNTER 2024-08-04 23:18 | Inpatient (IN) | payer OTHER ==
[~2024-08-04] VITALS: Ht 170.2 cm; Wt 69.0 kg
[~2024-08-04 23:18] MED LIST changes: -LORA-1000 PO; +LORA1TAB25 PO; +MAG30ORA11 PO; +OMEP20 PO; +ONDA-104 PO
[2024-08-05 00:29] LABS: BASOPHILS % (AUTO) 0.6 % (0.0-2.0); EOSINOPHILS % (AUTO) 0.8 % (1.0-6.0); HEMOGLOBIN 14.1 g/dL (13.5-17.5); LYMPHOCYTES # (AUTO) 1.2 K/uL (1.0-4.8); MEAN CORPUSCULAR HEMOGLOBIN 29.9 pg (26.0-34.0); MEAN CORPUSCULAR HGB CONC 33.6 G/dL (31.0-37.0); MEAN CORPUSCULAR VOLUME 89 fL (80-100); MONOCYTES # (AUTO) 0.4 K/uL (0.1-1.0); MONOCYTES % (AUTO) 7.5 % (2.0-9.0); NEUTROPHILS # (AUTO) 3.4 K/uL (1.8-7.7); NEUTROPHILS % (AUTO) 67.1 % (40.0-70.0); PLATELET COUNT (AUTO) 263 K/uL (150-450); RED CELL DISTRIBUTION WIDTH 13.6 % (11.5-14.5); WHITE BLOOD COUNT (AUTO) 5.1 K/uL (4.5-11.0)
[2024-08-05 00:35] LABS: ANION GAP 6 mmol/L (8-16); CALCIUM, TOTAL 9.2 mg/dL (8.8-10.5); CARBON DIOXIDE 29 mmol/L (22-29); CHLORIDE 103 mmol/L (98-107); CREATININE 1.03 mg/dL (0.60-1.30); GLOMERULAR FILTR. RATE CALC > 60 mL/min (>60); GLUCOSE,RANDOM 178 mg/dL (70-110); SODIUM SERUM 138 mmol/L (136-145); UREA NITROGEN, BLOOD 13 mg/dL (7-18)
[2024-08-05 00:43] LABS: CREATINE KINASE, TOTAL ONLY 83 U/L (39-308)
[2024-08-05 00:49] LABS: TROPONIN I-HIGH SENSITIVITY 4 ng/L (<76)
[2024-08-05 00:54] LABS: B-TYPE NATRIURETIC PEPTIDE 11 pg/mL (0-100)
[2024-08-05] MEDS: NITROGLYCERIN 2% (1 GM=INCH) OINTMENT PACKET TP ONE (01:05)
[2024-08-05] MEDS ORDERED: DEXTROSE 50%-WATER 25 GM/50 ML SYRINGE IVP PRN (01:15)
[2024-08-05] MEDS: ASPIRIN 81 MG CHEWABLE TABLET PO ONE (01:53)
[2024-08-05 03:45] LABS: TROPONIN I-HIGH SENSITIVITY Less Than 4 ng/L (<76)
[2024-08-05] MEDS: ACETAMINOPHEN 325 MG TABLET PO ONE (03:59)
[2024-08-05 06:05] VITALS: BP 104/62; PULSE 89; RESP 18; TEMP 98; O2SAT 96
[2024-08-05 06:37] LABS: COVID AG,FIA SOURCE NASAL SWAB
[2024-08-05 06:42] LABS: APPEARANCE,URINE CLEAR (CLEAR); BILIRUBIN,URINE NEGATIVE (NEGATIVE); COLOR,URINE COLORLESS (YELLOW); GLUCOSE, URINE (UA) NEGATIVE (NEGATIVE); KETONES,URINE NEGATIVE (NEGATIVE); LEUKOCYTE ESTERASE ,URINE NEGATIVE (NEGATIVE); NITRATE,URINE NEGATIVE (NEGATIVE); OCCULT BLOOD,URINE NEGATIVE (NEGATIVE); PROTEIN,URINE NEGATIVE (NEGATIVE); UROBILINOGEN,URINE <=1.0 mg/dL (<=1.0)
[2024-08-05 06:50] LABS: AMPHET/METH SCREEN,URINE NEGATIVE (NEGATIVE); BARBITURATE SCREEN, URINE NEGATIVE (NEGATIVE); BENZODIAZEPINES SCREEN,URINE NEGATIVE (NEGATIVE); CANNABINOID SCREEN,URINE NEGATIVE (NEGATIVE); COCAINE SCREEN,URINE NEGATIVE (NEGATIVE); METHADONE SCREEN, URINE NEGATIVE (NEGATIVE); OPIATE SCREEN,URINE NEGATIVE (NEGATIVE); PHENCYCLIDINE SCREEN,URINE NEGATIVE (NEGATIVE)
[2024-08-05 06:53] LABS: ALCOHOL, URINE DRUG SCREEN NEGATIVE (NEGATIVE)
[2024-08-05 07:03] LABS: INFLUENZA TYPE A NEGATIVE FOR TYPE A (NEGATIVE); INFLUENZA TYPE B NEGATIVE FOR TYPE B (NEGATIVE); SARS-COV2 (COVID) ANTIGEN,FIA Negative (Negative)
[2024-08-05 08:51] LABS: TROPONIN I-HIGH SENSITIVITY 5 ng/L (<76)
[2024-08-05] MEDS: ATORVASTATIN CALCIUM 40 MG TABLET PO SCH (09:45)
[2024-08-05] MEDS: OMEPRAZOLE 20 MG CAPSULE PO SCH (09:45)
[2024-08-05 11:34] VITALS: BP 118/74; PULSE 75; RESP 18; TEMP 98.5; O2SAT 97
[2024-08-05] MEDS ORDERED: MORPHINE SULFATE 2 MG/ML SYRINGE IVP PRN (12:00)
[2024-08-05] MEDS: LORazepam 1 MG TABLET PO PRN (12:01)
[2024-08-05 12:16] LABS: GLUCOMETER DEV NAME(LOC) 5N.1D; GLUCOSE,POINT OF CARE 130 MG/DL (70-110)
[2024-08-05 12:30] LABS: GLUCOMETER DEV NAME(LOC) 5N.2C; GLUCOSE,POINT OF CARE 128 MG/DL (70-110)
[2024-08-05] MEDS: SODIUM CHLORIDE 0.9% 250 ML IV ONE (13:03)
[2024-08-05] MEDS: NITROGLYCERIN 0.4 MG SUBLINGUAL TABLET #25 SL PRN (13:04)
[2024-08-05 15:00] VITALS: PULSE 75; PULSE 86; RESP 16; O2SAT 96; O2SAT 98
[2024-08-05] MEDS: ALBUTEROL SULFATE 2.5 MG/0.5 ML NEB SOLUTION NEB PRN (15:14)
[2024-08-05 16:00] VITALS: BP 110/70; PULSE 80; RESP 20; TEMP 98; O2SAT 97
[2024-08-05] MEDS: RIVAROXABAN 20 MG TABLET PO SCH (17:17)
[2024-08-05] MEDS: INSULIN LISPRO 100 UNITS/ML SQ PRN (17:22)
[2024-08-05] MEDS ORDERED: RIVAROXABAN 20 MG TABLET PO SCH (17:30)
[2024-08-05 17:36] LABS: GLUCOMETER DEV NAME(LOC) 5N.1D; GLUCOSE,POINT OF CARE 179 MG/DL (70-110)
[2024-08-05 20:42] VITALS: BP 109/65; PULSE 72; RESP 18; TEMP 98.2; O2SAT 96
[2024-08-05] MEDS: MONTELUKAST SODIUM 10 MG TABLET PO SCH (21:14)
[2024-08-05] MEDS: METOPROLOL SUCCINATE 25 MG ER TABLET PO SCH (21:14)
[2024-08-05] MEDS: INSULIN GLARGINE,HUM.REC.ANLOG 100 UNITS/ML SQ SCH (21:27)
[2024-08-06 00:36] LABS: GLUCOMETER DEV NAME(LOC) 5N.1D; GLUCOSE,POINT OF CARE 155 MG/DL (70-110)
[2024-08-06 01:20] VITALS: BP 115/61; PULSE 76; RESP 17; TEMP 97.6; O2SAT 95
[2024-08-06 05:34] VITALS: BP 102/72; PULSE 66; RESP 18; TEMP 97.6; O2SAT 100
[2024-08-06 07:06] LABS: GLUCOMETER DEV NAME(LOC) 5N.1D; GLUCOSE,POINT OF CARE 127 MG/DL (70-110)
[2024-08-06 07:53] VITALS: BP 97/53; PULSE 61; RESP 19; TEMP 97.6; O2SAT 98
== END 2024-08-06 11:34 | disposition home or self-care (01) | DRG 198 ==
LOC: EMS 23:18 → EDH 08-05 05:09 → UNDODISIN 08-05 06:00 → 5S 08-05 08:06
PROVIDERS: ADMIT Internal Medicine; ATTEND Internal Medicine
DX: I25.110 Atherosclerotic heart disease of native coronary artery with unstable angina pectoris (principal); E11.22 Type 2 diabetes mellitus with diabetic chronic kidney disease; I13.10 Hypertensive heart and chronic kidney disease without heart failure, with stage 1 through stage 4 chronic kidney disease, or unspecified chronic kidney disease; N18.30 Chronic kidney disease, stage 3 unspecified; J45.909 Unspecified asthma, uncomplicated; Z20.822 Contact with and (suspected) exposure to COVID-19; F41.9 Anxiety disorder, unspecified; G43.909 Migraine, unspecified, not intractable, without status migrainosus; Z86.73 Personal history of transient ischemic attack (TIA), and cerebral infarction without residual deficits; Z95.5 Presence of coronary angioplasty implant and graft; Z91.199 Patient's noncompliance with other medical treatment and regimen due to unspecified reason; Z79.01 Long term (current) use of anticoagulants; I25.2 Old myocardial infarction
CPT/HCPCS: 71045; 80048; 80307; 81003; 82550; 82962; 83880; 84484; 85025; 87804; 93005; 93306; 94640; 96372; 99285; G0378; J1815; J7050; 36415-L1; 36415-TC

== ENCOUNTER 2024-09-01 14:45 | Emergency (ER) | payer OTHER ==
[~2024-09-01] VITALS: Ht 170.2 cm; Wt 67.3 kg
[~2024-09-01 14:45] MED LIST changes: +OMEP-148 PO; -OMEP20 PO; -OMEP20CA12 PO; -PRED-729 PO
[2024-09-01 15:16] VITALS: BP 121/68; PULSE 88; RESP 16; TEMP 98.7; O2SAT 99
[2024-09-01 16:05] LABS: BASOPHILS % (AUTO) 0.6 % (0.0-2.0); EOSINOPHILS % (AUTO) 2.4 % (1.0-6.0); HEMATOCRIT 40.7 % (41-53); HEMOGLOBIN 13.4 g/dL (13.5-17.5); LYMPHOCYTES # (AUTO) 1.9 K/uL (1.0-4.8); LYMPHOCYTES % (AUTO) 32.3 % (22.0-44.0); MEAN CORPUSCULAR HEMOGLOBIN 29.5 pg (26.0-34.0); MEAN CORPUSCULAR VOLUME 89 fL (80-100); MONOCYTES # (AUTO) 0.5 K/uL (0.1-1.0); MONOCYTES % (AUTO) 9.2 % (2.0-9.0); NEUTROPHILS # (AUTO) 3.2 K/uL (1.8-7.7); NEUTROPHILS % (AUTO) 55.5 % (40.0-70.0); PLATELET COUNT (AUTO) 225 K/uL (150-450); RED BLOOD CELL COUNT(AUTO) 4.56 MIL/uL (4.50-5.90); RED CELL DISTRIBUTION WIDTH 13.7 % (11.5-14.5); WHITE BLOOD COUNT (AUTO) 5.8 K/uL (4.5-11.0)
[2024-09-01 16:18] LABS: ANION GAP 5 mmol/L (8-16); CALCIUM, TOTAL 9.1 mg/dL (8.8-10.5); CARBON DIOXIDE 32 mmol/L (22-29); CHLORIDE 104 mmol/L (98-107); CREATININE 0.91 mg/dL (0.60-1.30); GLOMERULAR FILTR. RATE CALC > 60 mL/min (>60); GLUCOSE,RANDOM 104 mg/dL (70-110); POTASSIUM 4.4 mmol/L (3.5-5.1); SODIUM SERUM 141 mmol/L (136-145); UREA NITROGEN, BLOOD 14 mg/dL (7-18)
[2024-09-01 16:24] LABS: LACTIC ACID 1.2 mmol/L (0.4-2.0)
[2024-09-01 16:28] LABS: LIPASE 43 U/L (16-77)
[2024-09-01 17:05] LABS: TROPONIN I-HIGH SENSITIVITY Less Than 4 ng/L (<76)
[2024-09-01] MEDS: MAG HYDROX/ALUMINUM HYD/SIMETH ES 30 ML SUSPENSION UDCUP PO ONE (18:01)
[2024-09-01] MEDS: ONDANSETRON HCL 4 MG/2 ML VIAL IM ONE (18:01)
[2024-09-01] MEDS: OMEPRAZOLE 20 MG CAPSULE PO ONE (18:02)
== END 2024-09-01 18:51 | disposition home or self-care (01) ==
LOC: EMS 14:45
DX: R07.89 Other chest pain (principal); R11.2 Nausea with vomiting, unspecified; K21.9 Gastro-esophageal reflux disease without esophagitis; F41.9 Anxiety disorder, unspecified; E11.9 Type 2 diabetes mellitus without complications; J45.909 Unspecified asthma, uncomplicated; Z79.51 Long term (current) use of inhaled steroids; Z79.899 Other long term (current) drug therapy
CPT/HCPCS: 99284; 80048; 83605; 83690; 84484; 85025; 36415; 93005; 96372; J2405

== ENCOUNTER 2024-09-02 01:34 | Emergency (ER) | payer OTHER ==
[~2024-09-02] VITALS: Ht 170.2 cm; Wt 79.0 kg
[2024-09-02 01:53] VITALS: TEMP 98.2
[2024-09-02] MEDS: PROMETHAZINE HCL 25 MG TABLET PO ONE (03:03)
[2024-09-02] MEDS: MAG HYDROX/ALUMINUM HYD/SIMETH ES 30 ML SUSPENSION UDCUP PO ONE (03:03)
[2024-09-02] MEDS: KETOROLAC TROMETHAMINE 60 MG/2 ML VIAL IM ONE (03:03)
[2024-09-02 03:26] LABS: TROPONIN I-HIGH SENSITIVITY Less Than 4 ng/L (<76)
[2024-09-02 04:00] VITALS: BP 129/68; PULSE 79; RESP 16; O2SAT 100
== END 2024-09-02 04:44 | disposition home or self-care (01) ==
LOC: EMS 01:34
DX: R11.2 Nausea with vomiting, unspecified (principal); R07.9 Chest pain, unspecified; E11.9 Type 2 diabetes mellitus without complications; F41.9 Anxiety disorder, unspecified; J45.909 Unspecified asthma, uncomplicated; Z79.51 Long term (current) use of inhaled steroids; Z79.85 Long-term (current) use of injectable non-insulin antidiabetic drugs; Z79.899 Other long term (current) drug therapy
CPT/HCPCS: 99283; 84484; 36415; 96372; J1885

== ENCOUNTER 2024-09-06 16:14 | Emergency (ER) | payer OTHER ==
[~2024-09-06] VITALS: Ht 170.2 cm; Wt 67.3 kg
[2024-09-06 16:20] VITALS: TEMP 98.1
[2024-09-06 16:57] LABS: BASOPHILS % (AUTO) 0.6 % (0.0-2.0); EOSINOPHILS % (AUTO) 0.1 % (1.0-6.0); HEMOGLOBIN 14.2 g/dL (13.5-17.5); LYMPHOCYTES # (AUTO) 0.6 K/uL (1.0-4.8); LYMPHOCYTES % (AUTO) 13.5 % (22.0-44.0); MEAN CORPUSCULAR HEMOGLOBIN 29.4 pg (26.0-34.0); MEAN CORPUSCULAR HGB CONC 33.1 G/dL (31.0-37.0); MEAN CORPUSCULAR VOLUME 89 fL (80-100); MONOCYTES # (AUTO) 0.1 K/uL (0.1-1.0); MONOCYTES % (AUTO) 2.8 % (2.0-9.0); NEUTROPHILS # (AUTO) 3.7 K/uL (1.8-7.7); PLATELET COUNT (AUTO) 260 K/uL (150-450); RED BLOOD CELL COUNT(AUTO) 4.84 MIL/uL (4.50-5.90); RED CELL DISTRIBUTION WIDTH 13.2 % (11.5-14.5); WHITE BLOOD COUNT (AUTO) 4.4 K/uL (4.5-11.0)
[2024-09-06 17:04] LABS: ANION GAP 7 mmol/L (8-16); CALCIUM, TOTAL 9.5 mg/dL (8.8-10.5); CARBON DIOXIDE 30 mmol/L (22-29); CHLORIDE 100 mmol/L (98-107); CREATININE 1.15 mg/dL (0.60-1.30); GLOMERULAR FILTR. RATE CALC > 60 mL/min (>60); GLUCOSE,RANDOM 181 mg/dL (70-110); POTASSIUM 4.5 mmol/L (3.5-5.1); SODIUM SERUM 137 mmol/L (136-145); UREA NITROGEN, BLOOD 16 mg/dL (7-18)
[2024-09-06 17:16] LABS: TROPONIN I-HIGH SENSITIVITY Less Than 4 ng/L (<76)
[2024-09-06] MEDS: ONDANSETRON 4 MG TABLET PO ONE (18:35)
[2024-09-06 19:23] VITALS: BP 110/63; PULSE 98; RESP 16; O2SAT 97
== END 2024-09-06 19:35 | disposition home or self-care (01) ==
LOC: EMS 16:14
DX: R11.2 Nausea with vomiting, unspecified (principal); R07.89 Other chest pain; F41.9 Anxiety disorder, unspecified; J45.909 Unspecified asthma, uncomplicated; I25.10 Atherosclerotic heart disease of native coronary artery without angina pectoris; I25.2 Old myocardial infarction; Z79.51 Long term (current) use of inhaled steroids; Z79.899 Other long term (current) drug therapy
CPT/HCPCS: 99285; 71045; 80048; 84484; 85025; 36415; 93005; Q0162

== ENCOUNTER 2024-09-10 15:16 | Emergency (ER) | payer OTHER ==
[~2024-09-10] VITALS: Ht 170.2 cm; Wt 67.3 kg
[2024-09-10 15:32] VITALS: TEMP 98.4
[2024-09-10 15:58] LABS: BASOPHILS % (AUTO) 0.6 % (0.0-2.0); EOSINOPHILS % (AUTO) 2.4 % (1.0-6.0); HEMOGLOBIN 13.4 g/dL (13.5-17.5); LYMPHOCYTES # (AUTO) 1.5 K/uL (1.0-4.8); LYMPHOCYTES % (AUTO) 33.4 % (22.0-44.0); MEAN CORPUSCULAR HEMOGLOBIN 29.2 pg (26.0-34.0); MEAN CORPUSCULAR HGB CONC 32.7 G/dL (31.0-37.0); MEAN CORPUSCULAR VOLUME 89 fL (80-100); MONOCYTES # (AUTO) 0.4 K/uL (0.1-1.0); MONOCYTES % (AUTO) 9.1 % (2.0-9.0); NEUTROPHILS # (AUTO) 2.5 K/uL (1.8-7.7); NEUTROPHILS % (AUTO) 54.5 % (40.0-70.0); PLATELET COUNT (AUTO) 242 K/uL (150-450); RED BLOOD CELL COUNT(AUTO) 4.58 MIL/uL (4.50-5.90); RED CELL DISTRIBUTION WIDTH 13.6 % (11.5-14.5); WHITE BLOOD COUNT (AUTO) 4.6 K/uL (4.5-11.0)
[2024-09-10 16:01] LABS: ANION GAP 4 mmol/L (8-16); CALCIUM, TOTAL 9.2 mg/dL (8.8-10.5); CARBON DIOXIDE 31 mmol/L (22-29); CHLORIDE 103 mmol/L (98-107); GLOMERULAR FILTR. RATE CALC > 60 mL/min (>60); GLUCOSE,RANDOM 126 mg/dL (70-110); POTASSIUM 3.8 mmol/L (3.5-5.1); SODIUM SERUM 138 mmol/L (136-145); UREA NITROGEN, BLOOD 9 mg/dL (7-18)
[2024-09-10 16:07] LABS: ALBUMIN 3.4 g/dL (3.4-5.0); BILIRUBIN,DIRECT 0.1 mg/dL (0.00-0.20); BILIRUBIN,TOTAL 0.6 mg/dL (0.1-1.0); TOTAL PROTEIN, SERUM 7.7 g/dL (6.4-8.2)
[2024-09-10 16:11] LABS: CREATINE KINASE, TOTAL ONLY 111 U/L (39-308)
[2024-09-10 16:22] LABS: B-TYPE NATRIURETIC PEPTIDE 9 pg/mL (0-100)
[2024-09-10 16:23] LABS: TROPONIN I-HIGH SENSITIVITY Less Than 4 ng/L (<76)
[2024-09-10] MEDS: ACETAMINOPHEN 500 MG TABLET PO ONE (16:23)
[2024-09-10] MEDS: ONDANSETRON 4 MG TABLET PO ONE (16:24)
[2024-09-10 16:39] VITALS: BP 111/39
[2024-09-10] MEDS: IPRATROPIUM BROMIDE 0.5 MG/2.5 ML NEB SOLUTION NEB ONE (16:41)
[2024-09-10] MEDS: ALBUTEROL SULFATE 2.5 MG/0.5 ML NEB SOLUTION NEB ONE (16:41)
[2024-09-10 17:15] VITALS: PULSE 86; RESP 16; O2SAT 98
[2024-09-10 17:16] VITALS: PULSE 86; RESP 16; O2SAT 98
== END 2024-09-10 17:31 | disposition left against medical advice (07) ==
LOC: EMS 15:16
DX: R07.89 Other chest pain (principal); F41.9 Anxiety disorder, unspecified; J45.909 Unspecified asthma, uncomplicated; I25.10 Atherosclerotic heart disease of native coronary artery without angina pectoris; I25.2 Old myocardial infarction; G43.909 Migraine, unspecified, not intractable, without status migrainosus; Z79.51 Long term (current) use of inhaled steroids; Z79.899 Other long term (current) drug therapy; Z86.73 Personal history of transient ischemic attack (TIA), and cerebral infarction without residual deficits
CPT/HCPCS: 99285; 71045; 80048; 80076; 82550; 83880; 84484; 85025; 36415; 94640; 93005; Q0162; J7613

== ENCOUNTER 2024-09-17 21:28 | Emergency (ER) | payer OTHER ==
[~2024-09-17] VITALS: Ht 170.2 cm; Wt 67.3 kg
[2024-09-17 21:55] VITALS: TEMP 98.7
[2024-09-17 23:40] VITALS: PULSE 74; RESP 18; O2SAT 97
[2024-09-17 23:55] VITALS: PULSE 74; RESP 18; O2SAT 100
[2024-09-18 02:45] VITALS: BP 106/65; PULSE 78; RESP 16; O2SAT 98
[2024-09-18 12:02] LABS: ANION GAP 7 mmol/L (8-16); CALCIUM, TOTAL 8.9 mg/dL (8.8-10.5); CARBON DIOXIDE 29 mmol/L (22-29); CHLORIDE 106 mmol/L (98-107); CREATININE 1.03 mg/dL (0.60-1.30); GLOMERULAR FILTR. RATE CALC > 60 mL/min (>60); GLUCOSE,RANDOM 179 mg/dL (70-110); POTASSIUM 4.4 mmol/L (3.5-5.1); SODIUM SERUM 142 mmol/L (136-145); TROPONIN I-HIGH SENSITIVITY 4 ng/L (<76); UREA NITROGEN, BLOOD 12 mg/dL (7-18)
[2024-09-18 12:08] LABS: HEMATOCRIT 40.2 % (41-53); HEMOGLOBIN 13.5 g/dL (13.5-17.5); MEAN CORPUSCULAR HEMOGLOBIN 29.7 pg (26.0-34.0); MEAN CORPUSCULAR HGB CONC 33.5 G/dL (31.0-37.0); MEAN CORPUSCULAR VOLUME 89 fL (80-100); RED BLOOD CELL COUNT(AUTO) 4.53 MIL/uL (4.50-5.90); RED CELL DISTRIBUTION WIDTH 13.6 % (11.5-14.5); WHITE BLOOD COUNT (AUTO) 8.1 K/uL (4.5-11.0)
[2024-09-18 12:09] LABS: BASOPHILS % (AUTO) 0.3 % (0.0-2.0); EOSINOPHILS % (AUTO) 0.1 % (1.0-6.0); LYMPHOCYTES # (AUTO) 0.9 K/uL (1.0-4.8); LYMPHOCYTES % (AUTO) 10.8 % (22.0-44.0); MONOCYTES # (AUTO) 0.1 K/uL (0.1-1.0); MONOCYTES % (AUTO) 1.1 % (2.0-9.0); NEUTROPHILS # (AUTO) 7.1 K/uL (1.8-7.7); NEUTROPHILS % (AUTO) 87.7 % (40.0-70.0); PLATELET COUNT (AUTO) 255 K/uL (150-450); RBC MORPHOLOGY COMMENT NORMAL RBC MORPH
== END 2024-09-18 03:14 | disposition home or self-care (01) ==
LOC: EMS 21:28
DX: J40 Bronchitis, not specified as acute or chronic (principal); F41.9 Anxiety disorder, unspecified; E11.65 Type 2 diabetes mellitus with hyperglycemia; Z79.51 Long term (current) use of inhaled steroids; Z79.85 Long-term (current) use of injectable non-insulin antidiabetic drugs; Z79.899 Other long term (current) drug therapy
CPT/HCPCS: 71045; 80048; 84484; 85025; 99285; 36415-L1; 36415-TC

== ENCOUNTER 2024-09-25 01:19 | Emergency (ER) | payer OTHER ==
[~2024-09-25] VITALS: Ht 170.2 cm; Wt 65.0 kg
[2024-09-25 01:21] VITALS: TEMP 97.9
[2024-09-25 01:47] LABS: BASOPHILS % (AUTO) 0.5 % (0.0-2.0); EOSINOPHILS % (AUTO) 0.5 % (1.0-6.0); HEMATOCRIT 39.8 % (41-53); HEMOGLOBIN 13.4 g/dL (13.5-17.5); LYMPHOCYTES # (AUTO) 2.6 K/uL (1.0-4.8); LYMPHOCYTES % (AUTO) 34.8 % (22.0-44.0); MEAN CORPUSCULAR HEMOGLOBIN 29.6 pg (26.0-34.0); MEAN CORPUSCULAR HGB CONC 33.6 G/dL (31.0-37.0); MEAN CORPUSCULAR VOLUME 88 fL (80-100); MONOCYTES # (AUTO) 0.5 K/uL (0.1-1.0); MONOCYTES % (AUTO) 7.1 % (2.0-9.0); NEUTROPHILS # (AUTO) 4.2 K/uL (1.8-7.7); NEUTROPHILS % (AUTO) 57.1 % (40.0-70.0); PLATELET COUNT (AUTO) 272 K/uL (150-450); RED BLOOD CELL COUNT(AUTO) 4.52 MIL/uL (4.50-5.90); RED CELL DISTRIBUTION WIDTH 13.4 % (11.5-14.5); WHITE BLOOD COUNT (AUTO) 7.4 K/uL (4.5-11.0)
[2024-09-25 01:58] LABS: ANION GAP 8 mmol/L (8-16); CALCIUM, TOTAL 8.7 mg/dL (8.8-10.5); CARBON DIOXIDE 28 mmol/L (22-29); CHLORIDE 102 mmol/L (98-107); GLOMERULAR FILTR. RATE CALC > 60 mL/min (>60); GLUCOSE,RANDOM 118 mg/dL (70-110); POTASSIUM 3.6 mmol/L (3.5-5.1); SODIUM SERUM 138 mmol/L (136-145); UREA NITROGEN, BLOOD 20 mg/dL (7-18)
[2024-09-25 02:07] LABS: TROPONIN I-HIGH SENSITIVITY 4 ng/L (<76)
[2024-09-25] MEDS ORDERED: LORA1TAB25 PO (03:23)
[2024-09-25] MEDS: LORazepam 1 MG TABLET PO ONE (04:20)
[2024-09-25 04:30] VITALS: BP 119/71; PULSE 55; RESP 16; O2SAT 99
== END 2024-09-25 05:05 | disposition home or self-care (01) ==
LOC: EMS 01:21
DX: R07.89 Other chest pain (principal); F41.9 Anxiety disorder, unspecified; J45.909 Unspecified asthma, uncomplicated; Z79.51 Long term (current) use of inhaled steroids; Z86.73 Personal history of transient ischemic attack (TIA), and cerebral infarction without residual deficits; Z79.899 Other long term (current) drug therapy
CPT/HCPCS: 80048; 84484; 85025; 93005; 99284

== ENCOUNTER 2025-05-26 14:54 | Observation (INO) | payer OTHER ==
[2025-05-26] VITALS (8 sets, daily range): BP systolic 110–125; BP diastolic 75–93; PULSE 84–101; RESP 16–20; TEMP 97.7–98.2; O2SAT 94–99
[~2025-05-26] VITALS: Ht 172.7 cm; Wt 74.1 kg
[2025-05-26] MEDS: NITROGLYCERIN 2% (1 GM=INCH) OINTMENT PACKET TP ONE (15:06)
[2025-05-26] MEDS: MORPHINE SULFATE 4 MG/ML SYRINGE IVP ONE (15:06)
[2025-05-26] MEDS: ONDANSETRON HCL 4 MG/2 ML VIAL IVP ONE (15:06)
[2025-05-26 15:11] LABS: PLATELET COUNT (AUTO) 256 K/uL (150-450); RED BLOOD CELL COUNT(AUTO) 4.87 MIL/uL (4.50-5.90); RED CELL DISTRIBUTION WIDTH 14.8 % (11.5-14.5); WHITE BLOOD COUNT (AUTO) 4.3 K/uL (4.5-11.0)
[2025-05-26 15:17] LABS: CALCIUM, TOTAL 8.3 mg/dL (8.8-10.5); CREATININE 0.95 mg/dL (0.60-1.30); GLOMERULAR FILTR. RATE CALC > 60 mL/min (>60); GLUCOSE,RANDOM 172 mg/dL (70-110); SODIUM SERUM 140 mmol/L (136-145); UREA NITROGEN, BLOOD 9 mg/dL (7-18)
[2025-05-26 15:26] LABS: TROPONIN I-HIGH SENSITIVITY Less Than 4 ng/L (<76)
[2025-05-26] MEDS ORDERED: GLUCAGON,HUMAN RECOMBINANT 1 MG VIAL IM PRN (16:15)
[2025-05-26] MEDS ORDERED: ACETAMINOPHEN 325 MG TABLET PO PRN (16:15)
[2025-05-26] MEDS: IPRATROPIUM BROMIDE 0.5 MG/2.5 ML NEB SOLUTION NEB ONE (16:15)
[2025-05-26] MEDS: ALBUTEROL SULFATE 2.5 MG/0.5 ML NEB SOLUTION NEB ONE (16:15)
[2025-05-26] MEDS ORDERED: ZOLPIDEM TARTRATE 5 MG TABLET PO PRN (16:15)
[2025-05-26] MEDS ORDERED: MAGNESIUM HYDROXIDE SUSPENSION 30 ML UDCUP PO PRN (16:15)
[2025-05-26] MEDS ORDERED: INSULIN LISPRO 100 UNITS/ML SQ PRN (16:15)
[2025-05-26] MEDS: FUROSEMIDE 40 MG/4 ML VIAL IVP ONE (16:16)
[2025-05-26] MEDS ORDERED: DEXTROSE 50%-WATER 25 GM/50 ML SYRINGE IVP PRN (16:30)
[2025-05-26] MEDS: POTASSIUM CHLORIDE 20 MEQ ER TABLET PO ONE (16:44)
[2025-05-26] MEDS: LORazepam 2 MG/ML VIAL IVP ONE (16:44)
[2025-05-26 18:28] LABS: TROPONIN I-HIGH SENSITIVITY 4 ng/L (<76)
[2025-05-26] MEDS ORDERED: POTASSIUM CHL 10 MEQ/WATER 50 ML IV PRN (20:00)
[2025-05-26] MEDS: POTASSIUM CHLORIDE 20 MEQ ER TABLET PO PRN (20:23)
[2025-05-26] MEDS: ATORVASTATIN CALCIUM 20 MG TABLET PO SCH (20:23)
[2025-05-26] MEDS: MONTELUKAST SODIUM 10 MG TABLET PO SCH (20:23)
[2025-05-26] MEDS: INSULIN LISPRO 100 UNITS/ML SQ PRN (20:43)
[2025-05-26] MEDS ORDERED: 0.9% SODIUM CHLORIDE 5 ML NEB SOLUTION NEB ONE (20:53)
[2025-05-26] MEDS: ALBUTEROL SULFATE 2.5 MG/0.5 ML NEB SOLUTION NEB PRN (20:56)
[2025-05-26] MEDS: MORPHINE SULFATE 4 MG/ML SYRINGE IVP PRN (21:17)
[2025-05-27] MEDS: HEPARIN SODIUM,PORCINE 5,000 UNITS/ML VIAL SQ SCH (00:17)
[2025-05-27 02:59] VITALS: PULSE 97; RESP 20; O2SAT 97
[2025-05-27 03:14] VITALS: PULSE 104; RESP 20; O2SAT 97
[2025-05-27 05:46] VITALS: BP 123/78; PULSE 92; RESP 17; TEMP 97.9; O2SAT 95
[2025-05-27 06:20] LABS: GLUCOMETER DEV NAME(LOC) 5S.1E; GLUCOSE,POINT OF CARE 265 MG/DL (70-110)
[2025-05-27 06:25] LABS: CALCIUM, TOTAL 9.4 mg/dL (8.8-10.5); CREATININE 1.26 mg/dL (0.60-1.30); GLOMERULAR FILTR. RATE CALC 60.0 mL/min (>60); GLUCOSE,RANDOM 221.0 mg/dL (70-110); SODIUM SERUM 136.0 mmol/L (136-145); UREA NITROGEN, BLOOD 16.0 mg/dL (7-18)
[2025-05-27] MEDS: FAMOTIDINE 20 MG TABLET PO SCH (08:25)
[2025-05-27] MEDS: ASPIRIN 81 MG CHEWABLE TABLET PO SCH (08:27)
[2025-05-27 08:39] VITALS: BP 117/86; PULSE 95; RESP 18; TEMP 97.7; O2SAT 97
[2025-05-27 11:50] LABS: GLUCOMETER DEV NAME(LOC) 5S.2E; GLUCOSE,POINT OF CARE 210 MG/DL (70-110)
== END 2025-05-27 10:55 | disposition home or self-care (01) ==
LOC: EMS 14:54 → EDH 16:06 → INTOOBSV 16:06 → 5N 18:44
PROVIDERS: ADMIT Internal Medicine; ATTEND Internal Medicine
DX: R07.89 Other chest pain (principal); E11.9 Type 2 diabetes mellitus without complications; J45.909 Unspecified asthma, uncomplicated; F41.9 Anxiety disorder, unspecified; I10 Essential (primary) hypertension; F41.1 Generalized anxiety disorder; E78.5 Hyperlipidemia, unspecified; I25.10 Atherosclerotic heart disease of native coronary artery without angina pectoris; G43.909 Migraine, unspecified, not intractable, without status migrainosus; I25.2 Old myocardial infarction; Z79.82 Long term (current) use of aspirin; Z86.73 Personal history of transient ischemic attack (TIA), and cerebral infarction without residual deficits; Z95.1 Presence of aortocoronary bypass graft; Z79.899 Other long term (current) drug therapy; Z98.890 Other specified postprocedural states
CPT/HCPCS: 99219 ×2; 80048 ×2; 82962 ×2; 83880; 84484; 85025; 36415 ×2; 94640 ×2; 71045; 93005; 96374; 96375; 99291; 87081; J1938; J2060; J2270 ×2; J2919; J2405; J1644 ×2; 96372; 96376; J7613

== ENCOUNTER 2025-06-22 06:03 | Emergency (ER) | payer OTHER ==
[~2025-06-22] VITALS: Ht 167.6 cm; Wt 68.2 kg
[~2025-06-22 06:03] MED LIST changes: -ACET-66 PO; -ALBU0.8311 NEB; -ALBU18HF12 IH; -LORA1TAB25 PO; -MAG30ORA11 PO; -OMEP-148 PO; -ONDA-104 PO; -RIVA20TA PO; -ZOLP-162 PO
[2025-06-22 06:22] VITALS: TEMP 97.9
[2025-06-22 06:33] LABS: PLATELET COUNT (AUTO) 270 K/uL (150-450); RED BLOOD CELL COUNT(AUTO) 4.78 MIL/uL (4.50-5.90); RED CELL DISTRIBUTION WIDTH 14.2 % (11.5-14.5); WHITE BLOOD COUNT (AUTO) 5.1 K/uL (4.5-11.0)
[2025-06-22 06:39] LABS: CALCIUM, TOTAL 8.7 mg/dL (8.8-10.5); CREATININE 0.94 mg/dL (0.60-1.30); GLOMERULAR FILTR. RATE CALC > 60 mL/min (>60); GLUCOSE,RANDOM 162 mg/dL (70-110); SODIUM SERUM 139 mmol/L (136-145); UREA NITROGEN, BLOOD 11 mg/dL (7-18)
[2025-06-22 06:45] LABS: ASPARTATE AMINOTRANSFERASE 14.0 U/L (15-37); TOTAL PROTEIN, SERUM 7.4 g/dL (6.4-8.2)
[2025-06-22 06:49] LABS: TROPONIN I-HIGH SENSITIVITY 5 ng/L (<76)
[2025-06-22] MEDS ORDERED: MORPHINE SULFATE 2 MG/ML SYRINGE IVP ONE (07:45)
[2025-06-22] MEDS ORDERED: OxyCODONE HCL/ACETAMINOPHEN 5-325 MG TABLET PO PRN (08:00)
[2025-06-22] MEDS ORDERED: MAGNESIUM HYDROXIDE SUSPENSION 30 ML UDCUP PO PRN (08:00)
[2025-06-22] MEDS ORDERED: ACETAMINOPHEN 325 MG TABLET PO PRN (08:00)
[2025-06-22] MEDS ORDERED: ONDANSETRON HCL 4 MG/2 ML VIAL IVP PRN (08:00)
[2025-06-22] MEDS: DOCUSATE SODIUM 100 MG CAPSULE PO SCH (08:35)
[2025-06-22] MEDS: FAMOTIDINE 20 MG TABLET PO SCH (08:35)
[2025-06-22 08:36] VITALS: BP 121/74; PULSE 81; RESP 17; O2SAT 99
== END 2025-06-22 09:40 | disposition left against medical advice (07) ==
LOC: EMS 06:04 → UNDOADMIN 07:56 → EDH 07:56 → EMS 09:40
DX: R07.89 Other chest pain (principal); R06.02 Shortness of breath; F41.9 Anxiety disorder, unspecified; J45.909 Unspecified asthma, uncomplicated; I25.10 Atherosclerotic heart disease of native coronary artery without angina pectoris; Z79.51 Long term (current) use of inhaled steroids; Z86.73 Personal history of transient ischemic attack (TIA), and cerebral infarction without residual deficits; Z95.1 Presence of aortocoronary bypass graft; Z79.899 Other long term (current) drug therapy
CPT/HCPCS: 71045; 80048; 80076; 83880; 84484; 85025; 85610; 85730; 93005; 99285; 36415-L1; 36415-TC